=== PATIENT | male | born 1945 | race Caucasian/White ===

== ENCOUNTER 2022-11-30 14:20 | Emergency (ER) | payer MEDICARE, OTHER, SELFPAY ==
[2022-11-30 14:23] VITALS: BP 136/65; PULSE 61; RESP 14; TEMP 37; O2SAT 97; BMI 26.2
--- NOTE | 2022-11-30 14:30 | DI.CT.S_ITS ---
PROCEDURE: CT CERVICAL SPINE WO CON INDICATIONS: fall on thinners. Lac posterior scalp TECHNIQUE: Noncontrast 3 mm thick sections acquired from the skull base to the T4 level. Sagittal and coronal reformats were then constructed. For radiation dose reduction, the following was used: automated exposure control, adjustment of mA and/or kV according to patient size. COMPARISON: [facility], CT, CT HEAD/BRAIN WO CON, 11/30/2022, 15:09. FINDINGS: Image quality: Excellent. Bones: No fractures or dislocations. Visualized superior ribs are intact. Degenerative changes are seen, including moderate to severe disc space narrowing at C3-C4, C4-C5, C5-C6, C6-C7, and C7-T1. Endplate irregularity and sclerosis are seen, which are overall worst at the C4-C5 level. Minimal anterolisthesis can be seen at C7-T1. Focal degenerative change is seen involving the C1-C2 interface anteriorly. Soft tissues: Prevertebral soft tissues are normal in thickness. No paravertebral hematomas. No apical pneumothoraces. IMPRESSION: Negative for acute cervical spine fracture. Extensive cervical spine degenerative changes are seen. Dictated by: Kun Amor M.D. on 11/30/2022 at 14:14 Approved by: Kun Amor M.D. on 11/30/2022 at 14:15
--- NOTE | 2022-11-30 14:30 | DI.CT.S_ITS ---
PROCEDURE: CT HEAD/BRAIN WO CON INDICATIONS: fall on thinners. Lac posterior scalp TECHNIQUE: Noncontrast 4.5 mm thick angled axial sections acquired from the foramen magnum to the vertex, with coronal and sagittal reformats. For radiation dose reduction, the following was used: automated exposure control, adjustment of mA and/or kV according to patient size. COMPARISON: [facility], CT, CT CERVICAL SPINE WO CON, 11/30/2022, 15:09. FINDINGS: Image quality: Excellent. CSF spaces: Basal cisterns are patent. No extra-axial fluid collections. The ventricles are symmetric in size and shape. Brain: No intracranial bleeds or masses. There is cerebral volume loss for age, with resultant ventricular and sulcal prominence. There are periventricular and deep white matter chronic small vessel ischemic changes. There is intracranial internal carotid artery atherosclerosis. Skull and face: Calvarium and visualized facial bones appear intact, without suspicious lesions. Sinuses: Visualized sinuses and mastoids are clear. IMPRESSION: No acute intracranial hemorrhage is seen. No acute intracranial process is seen. No displaced calvarial fracture can be seen. Dictated by: Kun Amor M.D. on 11/30/2022 at 14:13 Approved by: Kun Amor M.D. on 11/30/2022 at 14:14
--- NOTE | 2022-11-30 14:52 | ED_ITS ---
HPI - Head Injury <CHECO Johnson - Last Filed: 11/30/22 19:06> General Chief complaint: Head Injury Stated complaint: fell, lac on head, sent from [place] Time Seen by Provider: 11/30/22 14:45 Source: patient and family Mode of arrival: Ambulatory History of Present Illness HPI Narrative: This is a 77-year-old gentleman history atrial fibrillation on Eliquis who presents to the emergency department complaining of [place] states that he struck the top of his head and did not have a loss of consciousness, denies neck pain or vomiting, denies headache or blurry vision but endorses having laceration to the top of his head. He came in from [facility] for suture repair and evaluation of this since he is on an anticoagulant. Related Data Allergies Allergy/AdvReac Type Severity Reaction Status Date / Time No Known Drug Allergies Allergy Verified 11/30/22 14:28 Review of Systems <CHECO Johnson - Last Filed: 11/30/22 19:06> Review of Systems ROS Unobtainable: All systems reviewed & are unremarkable except as noted in HPI and below Patient History <CHECO Johnson - Last Filed: 11/30/22 19:06> Social History Smoking Status: Never smoker Smoking Status: Never smoker alcohol intake frequency: 0-2 drinks per day Substance Use Type: does not use Exam <CHECO Johnson - Last Filed: 11/30/22 19:06> Narrative Exam Narrative: Reviewed vitals signs and nursing notes. General: Pleasant, sitting upright, in no acute distress, well groomed, afebrile HEENT: symmetrical facial expressions, moist mucous membranes, neck is supple, EOMI, PERRLA bilaterally, conjugate gaze without nystagmus, no visual field cut, laceration approximately 2 cm to the left parietal scalp, mild contusion/hematoma, no palpable skull depression or deformity CV: regular rate and rhythm, warm extremities Respiratory: normal work of breathing, without tachypnea or hypoxia. MSK: moves all extremities, no weakness, normal tone, ambulatory without deficit, has a small abrasion to his low back, contusion to his right elbow, can fully flex and extend his right elbow, denies pain with axial load or with squeezing of the elbow joint. Neurovascularly intact, no tenderness along spine with palpation, ambulatory. Skin: brisk capillary refill Neuro: clear speech and normal cognition, A&O x3, GCS 15, no focal motor or sensation deficits Initial Vital Signs Initial Vital Signs: Vital Signs Temperature 98.6 F 11/30/22 14:23 Pulse Rate 61 11/30/22 14:23 Respiratory Rate 14 11/30/22 14:23 Blood Pressure 136/65 11/30/22 14:23 Pulse Oximetry 97 11/30/22 14:23 Oxygen Delivery Method Room Air 11/30/22 14:23 <Kelly Manning DO - Last Filed: 12/10/22 01:30> Initial Vital Signs Initial Vital Signs: Vital Signs Temperature 98.6 F 11/30/22 14:23 Pulse Rate 61 11/30/22 14:23 Respiratory Rate 14 11/30/22 14:23 Blood Pressure 136/65 11/30/22 14:23 Pulse Oximetry 97 11/30/22 14:23 Oxygen Delivery Method Room Air 11/30/22 14:23 Procedures <CHECO Johnson - Last Filed: 11/30/22 19:06> Laceration Repair Laceration 1: Site: scalp Side (If applicable): left Size (cm): 2 Description: linear, stellate and irregular Depth: simple, single layer Local Anesthetic: lidocaine 2% and with epi Amount of anesthesia used (mL): 3 Pre-repair: wound explored, irrigated extensively and deep structures intact Skin layer closed with: vicryl Skin layer suture size: 5-0 Number of sutures: 11 Technique: simple, interrupted Scores <CHECO Johnson - Last Filed: 11/30/22 19:06> [place] CT Head Rule Age <16 years old: No Patient on blood thinners: Yes Seizure after injury: No Exclusion: Patient meets exclusion criteria <Kelly Manning DO - Last Filed: 12/10/22 01:30> [place] CT Head Rule Exclusion: Patient meets exclusion criteria Course <CHECO Johnson - Last Filed: 11/30/22 19:06> Orders Ordered: Discontinued Medications Diphtheria/Tetanus/Acell Pertussis (Tet,Diph,Pertuss(Acell),Vac/Pf 0.5 Ml Syringe) 0.5 ml IM .ONCE ONE Stop: 11/30/22 14:56 Last Admin: 11/30/22 15:08 Dose: 0.5 ml Documented By: JODI Lidocaine HCl (Lidocaine 2% Inj Sdv 5ml) 5 ml INJ INTRA-OP ONE Stop: 11/30/22 14:46 Last Admin: 11/30/22 15:17 Dose: Not Given Documented By: JODI Lidocaine/Epinephrine (Lidocaine 2% W/Epi Inj) 20 ml INJ INTRA-OP ONE Stop: 11/30/22 14:46 Last Admin: 11/30/22 15:08 Dose: 20 ml Documented By: JODI Vital Signs Vital signs: Vital Signs - 8 hr 11/30/22 14:23 11/30/22 16:17 Temperature 98.6 F Pulse Rate 61 62 Respiratory Rate 14 16 Blood Pressure 136/65 161/83 H Pulse Oximetry 97 99 Oxygen Delivery Method Room Air Room Air <Kelly Manning DO - Last Filed: 12/10/22 01:30> Orders Ordered: Discontinued Medications Diphtheria/Tetanus/Acell Pertussis (Tet,Diph,Pertuss(Acell),Vac/Pf 0.5 Ml Syri nge) 0.5 ml IM .ONCE ONE Stop: 11/30/22 14:56 Last Admin: 11/30/22 15:08 Dose: 0.5 ml Documented By: JODI Lidocaine HCl (Lidocaine 2% Inj Sdv 5ml) 5 ml INJ INTRA-OP ONE Stop: 11/30/22 14:46 Last Admin: 11/30/22 15:17 Dose: Not Given Documented By: JODI Lidocaine/Epinephrine (Lidocaine 2% W/Epi Inj) 20 ml INJ INTRA-OP ONE Stop: 11/30/22 14:46 Last Admin: 11/30/22 15:08 Dose: 20 ml Documented By: JODI Vital Signs Vital signs: Vital Signs - 8 hr 11/30/22 14:23 11/30/22 16:17 Temperature 98.6 F Pulse Rate 61 62 Respiratory Rate 14 16 Blood Pressure 136/65 161/83 H Pulse Oximetry 97 99 Oxygen Delivery Method Room Air Room Air MDM - Head Injury <CHECO Johnson - Last Filed: 11/30/22 19:06> Imaging Data CT scan - head: Radiologist's Impression: [address] [address] [address] Scan Report Signed Patient: Alexander Cortez MR#: [id number] : 1945 Acct:[id number] Age/Sex: 77 / M Date of Service: 11/30/22 Loc: ED Accession Number: [id number] ?? Procedure: CT head/brain wo con Ordering Provider: Kelly Manning D.O. PROCEDURE:? CT HEAD/BRAIN WO CON ? INDICATIONS:? fall on thinners. Lac posterior scalp ? TECHNIQUE:? Noncontrast 4.5 mm thick angled axial sections acquired from the foramen magnum to the vertex, with coronal and sagittal reformats.? For radiation dose reduction, the following was used:? automated exposure control, adjustment of mA and/or kV according to patient size.? ? COMPARISON:? [facility], CT, CT CERVICAL SPINE WO CON, 11/30/2022, 15:09. ? FINDINGS:? Image quality:? Excellent.? ? CSF spaces:? Basal cisterns are patent.? No extra-axial fluid collections.? The ventricles are symmetric in size and shape.? ? Brain:? No intracranial bleeds or masses.? There is cerebral volume loss for age, with resultant ventricular and sulcal prominence.? There are periventricular and deep white matter chronic small vessel ischemic changes.? There is intracranial internal carotid artery atherosclerosis.? ? Skull and face:? Calvarium and visualized facial bones appear intact, without suspicious lesions.? ? Sinuses:? Visualized sinuses and mastoids are clear. ? ? ? IMPRESSION:? No acute intracranial hemorrhage is seen.? ? No acute intracranial process is seen.? ? No displaced calvarial fracture can be seen.? ? ? Dictated by: Kun Amor M.D. on 11/30/2022 at 14:13 ? ? Approved by: Kun Amor M.D. on 11/30/2022 at 14:14 ? Extremity x-ray #1: Radiologist's Impression: [address] [address] XRay Report Signed Patient: Alexander Cortez MR#: [id number] : 1945 Acct:[id number] Age/Sex: 77 / M Date of Service: 11/30/22 Loc: ED Accession Number: [id number] ?? Procedure: XR elbow RT min 3V Ordering Provider: Melissa Mustafa PROCEDURE:? XR ELBOW RT MIN 3V ? INDICATIONS:? Trauma, fall, right elbow injury ? TECHNIQUE:? 3 views of the elbow were acquired.? ? COMPARISON:? None. ? FINDINGS:? ? Bones:? No fractures or dislocations.? No suspicious bony lesions.? ? Soft tissues:? No elbow joint effusion.? No suspicious soft tissue calcifications.? ? ? IMPRESSION:? No fracture. No osseous lesion. If symptoms and/or clinical suspicion for pathology persists, further assessment with repeat radiographs (7-10 days) or advanced imaging (e.g. CT, MRI or bone scan) should be considered. ? ? Dictated by: Herlinda James MD, PhD on 11/30/2022 at 16:23 ? ? Approved by: Herlinda James MD, PhD on 11/30/2022 at 16:23 ? MDM Narrative Medical decision making narrative: Chief Complaint: head injury Multiple etiologies for patient's complaint considered including, but not limited to: I have independently reviewed the patient's vital signs and nursing notes as well as prior records if available. Plan: Pain control, patient reports he does not need any pain medication at this time, tetanus vaccination, his last tetanus vaccination was in 2012, head CT and cervical spine CT without contrast, suture repair Suture repair was uncomplicated, CT head and C-spine are negative for acute abnormalities. Patient has some ecchymosis over the olecranon and will obtain a right elbow x-ray prior to DC. He has full mobility of his right arm, sensation and neurovascularly intact. Initial interpretation of x-ray prior to radiologist interpretation shows a mild effusion, no acute fracture, patient has full mobility in his able to extend his arm fully. There is some soft tissue edema. Radiology read of the right elbow x-ray is negative for joint effusion or suspicious soft tissue calcifications. No fractures. Patient's scalp was repaired with dissolvable sutures. He understands return to the emergency department for worsening headache, vomiting, altered mentation, difficulty walking, or other concerns. He is not immunosuppressed and does not have a history of diabetes, no antibiotic prophylaxis. Encouraged him use topical antibiotic ointment and to follow-up with his primary as soon as able. His tetanus vaccination was updated today. Social considerations that may affect disposition: none Questions are addressed and there is agreement with the plan and for follow-up. I consulted with the ED attending physician Dr. Manning as needed for higher level of care considerations and they were available for discussion and recommendations regarding plan of care and diagnostic testing. Patient is appropriate for outpatient management. #[id number] - Emergency Medicine: Utilization of CT for Minor Blunt Head Trauma (Adult) Patient is 18 or older, presenting with minor blunt head trauma. Head CT (including cosigned orders) was ordered by an emergency human services care specialist for trauma because the patient: [ ] is vomiting\ severe/dangerous mechanism of injury was identified [ ] is experiencing a severe headache [ ] sustained loss of consciousness [ ] GCS less than 15 [ ] is experiencing amnesia of the event or focal neurologic deficit [ ] sustained injury above the clavicles [x ] is suspected of taking anticoagulant medications [x ] is 65 years or older [ ] is intoxicated Patient has one or more of the following conditions that are excluded from the measure: [ ] Patient has ventricular shunt [ ] Patient has brain tumor [ ] Patient is [ ] Patient has multi-system trauma [x ] Patient taking an antiplatelet medication (excluding aspirin) Discharge Plan Departure Patient Disposition: Home Clinical Impression: Anticoagulant long-term use Fall Qualifiers: Encounter type: initial encounter Qualified Code(s): W19.XXXA - Unspecified fall, initial encounter Laceration of head Qualifiers: Encounter type: initial encounter Location of open wound of head: scalp Foreign body presence: without foreign body Qualified Code(s): S01.01XA - Laceration without foreign body of scalp, initial encounter Contusion of elbow Qualifiers: Encounter type: initial encounter Laterality: right Qualified Code(s): S50.01XA - Contusion of right elbow, initial encounter Instructions: Contusion, DI for Closed Head Injury, How to Care for Absorbable Sutures Activity Restrictions/Additional Instructions: *You have been diagnosed with no acute findings on your neck or head CT, there is degenerative disc disease probably from your years of palatine and you probably have neck pain at baseline which could worsen your muscular pain over the next few days. Since your anticoagulated, you may have bigger bruises than most people, if you have worsening symptoms including headache, nausea, altered mentation, started vomiting, or difficulty walking, please come back for repeat evaluation. I will Call you if there are any acute findings on your right elbow x-ray otherwise take Tylenol as needed for pain, try and rest, avoid scrubbing the area with sutures but you may gently wash your hair. I hope you feel better soon, and enjoy the rest of your vacation. *What to do: *Please continue to take your regular medications as directed. [ ] New medication prescriptions sent to your pharmacy: [ ] [ ] New medication written as a paper prescription [x ] No new medications given *Please call and schedule follow up with your primary care provider in 2-3 days, at least for an update. Let them know you were seen in the Emergency Department for the above problem. We will electronically transmit a record of today's note if your PCP or specialist is in our system. *If you do not have a primary care provider please contact [phone] to establish care with one of the [facility] primary care providers. *Return to the Emergency Department for worsening symptoms, inability to keep liquids down, fever greater than 101F, chills, or other concerning symptom. Stand Alone Forms: Patient Portal/API <Kelly Manning DO - Last Filed: 12/10/22 01:30> Cosign ED Attending Vivianaature Attestation: I was immediately available in the department for consultation. Documentation has been reviewed.
[2022-11-30] MEDS: TET,DIPH,PERTUSS(ACELL),VAC/PF 0.5 ML SYRINGE IM (15:08)
[2022-11-30] MEDS: LIDOCAINE 2% W/EPI INJ 20 ML INJ (15:08)
--- NOTE | 2022-11-30 15:39 | DI.RAD.S_ITS ---
PROCEDURE: XR ELBOW RT MIN 3V INDICATIONS: Trauma, fall, right elbow injury TECHNIQUE: 3 views of the elbow were acquired. COMPARISON: None. FINDINGS: Bones: No fractures or dislocations. No suspicious bony lesions. Soft tissues: No elbow joint effusion. No suspicious soft tissue calcifications. IMPRESSION: No fracture. No osseous lesion. If symptoms and/or clinical suspicion for pathology persists, further assessment with repeat radiographs (7-10 days) or advanced imaging (e.g. CT, MRI or bone scan) should be considered. Dictated by: Herlinda James MD, PhD on 11/30/2022 at 16:23 Approved by: Herlinda James MD, PhD on 11/30/2022 at 16:23
[2022-11-30 16:17] VITALS: BP 161/83; PULSE 62; RESP 16; O2SAT 99
== END 2022-11-30 16:19 | disposition home or self-care (01) ==
PROVIDERS: Emergency Provider Nurse Practitioner Critical Care Medicine
DX: S01.01XA Laceration without foreign body of scalp, initial encounter (principal); S50.01XA Contusion of right elbow, initial encounter; W18.30XA Fall on same level, unspecified, initial encounter; Z79.01 Long term (current) use of anticoagulants
CPT/HCPCS: 12001; 70450; 72125; 73080; 90471; 99284; 90715